=== PATIENT | female | born 1995 | race Hispanic/Latino ===

== ENCOUNTER 2019-03-24 22:13 | Emergency (ER) | payer OTHER ==
[~2019-03-24] VITALS: Ht 152.4 cm; Wt 90.7 kg
[2019-03-25 00:30] VITALS: BP 116/63; TEMP 98.4
== END 2019-03-25 00:30 | disposition home or self-care (01) ==
LOC: ED 22:13
DX: G43.909 Migraine, unspecified, not intractable, without status migrainosus (principal)
CPT/HCPCS: 96372; 99283; J1200; J1885; J2405